=== PATIENT | male | born 1955 | race Caucasian/White ===

== ENCOUNTER 2017-01-22 10:34 | Day surgery (SDC) | payer BC ==
[2017-01-20 11:30] LABS: BLOOD UREA NITROGEN 26 mg/dL (7-18)
[2017-01-20 11:33] LABS: ASPARTATE AMINO TRANSFERASE 64 U/L (15-37)
[~2017-01-22] VITALS: Ht 170.2 cm; Wt 63.0 kg
[~2017-01-22 10:34] MED LIST: ASPI-496 PO; ATOR10TA9 PO; HYDR-3138 PO; LISI-167 PO; SILD100T PO
[2017-01-22 11:10] VITALS: BP 90/56
[2017-01-22] MEDS ORDERED: SODIUM CHLORIDE 0.9% 1,000 ML IV ONE (11:30)
[2017-01-22] MEDS ORDERED: LIDOCAINE 2%, 20ML ONE (12:15)
[2017-01-22] MEDS ORDERED: PROTAMINE SULFATE 10 MG/ML, 25ML ONE (12:19)
[2017-01-22] MEDS ORDERED: FENTANYL PF 100 MCG/2ML ONE (12:20)
[2017-01-22] MEDS ORDERED: MIDAZOLAM 1 MG/ML, 5ML ONE ×2 (12:20→12:21)
[2017-01-22] MEDS ORDERED: NITROGLYCERIN 5 MG/ML, 10ML ONE (12:20)
[2017-01-22] MEDS ORDERED: NALOXONE 1 MG/ML, 2ML ONE (12:21)
[2017-01-22] MEDS ORDERED: HEPARIN 1,000 UNITS/ML, 10ML ONE (12:21)
[2017-01-22] MEDS ORDERED: FLUMAZENIL 0.1 MG/1 ML, 5ML ONE (12:21)
[2017-01-22] MEDS ORDERED: VISIPAQUE 270 MG/ML, 150ML BOTTLE ONE (12:30)
[2017-01-22] MEDS ORDERED: OXYcodone/APAP 5/325MG TABLET ONE (15:59)
[2017-01-22] MEDS ORDERED: OXYcodone/APAP 5/325MG TABLET PO ONE (16:00)
== END 2017-01-22 17:55 | disposition home or self-care (01) ==
LOC: OUT 10:34
PROVIDERS: ATTEND Internal Medicine Cardiovascular Disease
DX: I70.213 Atherosclerosis of native arteries of extremities with intermittent claudication, bilateral legs (principal)
CPT/HCPCS: 36415; 37220; 37221; 37222; 37224; 71020; 75625; 75716; 80053; 85025; 99156; 99157; C1725; C1751; C1760; C1769; C1876; C1894; C2623; J1644; J2250; J3010; J3490; J7030; Q9966; 75630; J2720; J2310

== ENCOUNTER → 2017-01-29 | Outpatient (CLI) | payer BC | END | disposition home or self-care (01) | LOC: LAB 09:57 | PROVIDERS: ATTEND Physician Assistant | DX: E78.00 Pure hypercholesterolemia, unspecified (principal) | CPT/HCPCS: 36415; 85025 ==

== ENCOUNTER 2019-02-01 09:23 | Outpatient (CLI) | payer BC ==
[~2019-02-01 09:23] MED LIST changes: -HYDR-3138 PO; +HYDR-3237 PO
== END 2019-02-01 23:59 | disposition home or self-care (01) ==
LOC: CVU 09:23
PROVIDERS: ATTEND Internal Medicine Cardiovascular Disease
DX: I70.203 Unspecified atherosclerosis of native arteries of extremities, bilateral legs (principal); I74.5 Embolism and thrombosis of iliac artery
CPT/HCPCS: 93978

== ENCOUNTER 2019-02-11 09:18 | Day surgery (SDC) | payer BC ==
[~2019-02-11] VITALS: Ht 172.7 cm; Wt 66.0 kg
[2019-02-11 09:39] VITALS: BP 124/81
== END 2019-02-11 16:00 | disposition home or self-care (01) ==
LOC: OUT 09:18
PROVIDERS: ATTEND Internal Medicine
DX: I70.201 Unspecified atherosclerosis of native arteries of extremities, right leg (principal); E78.5 Hyperlipidemia, unspecified; I10 Essential (primary) hypertension; Z79.82 Long term (current) use of aspirin; Z79.891 Long term (current) use of opiate analgesic; Z79.899 Other long term (current) drug therapy; Z87.891 Personal history of nicotine dependence
CPT/HCPCS: 36415; 37220; 75625; 75716; 80048; 85025; 99156; 99157; C1751; C1760; C1769; C1894; C2623; J1644; J2250; J3010; J7030; Q9966; 75710; J2720; J2310

== ENCOUNTER 2019-12-21 09:20 | Outpatient (CLI) | payer BC | END 2019-12-21 23:59 | disposition home or self-care (01) | LOC: CFH 09:20 | PROVIDERS: ATTEND Internal Medicine Cardiovascular Disease | DX: I10 Essential (primary) hypertension (principal); R55 Syncope and collapse; E78.5 Hyperlipidemia, unspecified; Z87.891 Personal history of nicotine dependence | CPT/HCPCS: 93306 ==